=== PATIENT | male | born 1955 | race Caucasian/White ===

== ENCOUNTER 2020-08-04 09:53 | Outpatient (REF) | payer MEDICARE, OTHER, SELFPAY ==
[2020-08-04 12:38] LABS: Urine Cytology See Pathology rpt
[2020-08-04 12:42] LABS: Glucose Urine UA NEG (NEG); Leukocyte Esterase Urine NEG (NEG); Nitrite Urine NEG (NEG); Urine Blood NEG (NEG); Urine Ketones NEG (NEG); Urine Protein NEG (NEG-TRACE)
[2020-08-04 12:44] LABS: Appearance Urine CLEAR; Color Urine YELLOW
== END 2020-08-04 09:54 | disposition home or self-care (01) ==
LOC: HO.MANLDS 09:53
PROVIDERS: PCP Internal Medicine; Visit Provider Internal Medicine
DX: R31.21 Asymptomatic microscopic hematuria (principal)
CPT/HCPCS: 81003; 88112

== ENCOUNTER 2021-07-05 14:11 | Outpatient (REF) | payer MEDICARE, OTHER, SELFPAY ==
--- NOTE | ~2021-07-05 | US_ITS ---
EXAMINATION: US PELVIS, LIMITED/FOLLOW UP CLINICAL INFORMATION: Question right inguinal hernia. COMPARISON: None TECHNIQUE: Using a linear transducer with grayscale and color modalities, ultrasound examination performed of the right inguinal region. FINDINGS: Within the right inguinal region, corresponding with the focus of pain described by the patient, a fat-containing hernia is seen, with neck measuring 1.1 cm. This is clearly visualized with the patient standing. The cutaneous, subcutaneous, muscular and fascial planes are otherwise unremarkable. No mass, fluid collection or lymphadenopathy is seen. Color Doppler imaging is unremarkable. US/US pelvic limited IMPRESSION: Findings are consistent with a small, fat-containing right internal hernia.
== END 2021-07-05 14:12 | disposition home or self-care (01) ==
LOC: HO.US 14:11
PROVIDERS: Visit Provider Physician Assistant
DX: K40.90 Unilateral inguinal hernia, without obstruction or gangrene, not specified as recurrent (principal)
CPT/HCPCS: 76857